=== PATIENT | male | born 2000 | race African-American/Black ===

== ENCOUNTER 2020-10-05 09:36 | Emergency (ER) | payer MEDICAID ==
[~2020-10-05] VITALS: Ht 188 cm; Wt 77.1 kg
[2020-10-05 09:46] VITALS: BP_SYST 124
[2020-10-05 09:55] VITALS: BP_SYST 124
[2020-10-05] MEDS ORDERED: ONDA-8 TL (10:10)
[2020-10-05] MEDS ORDERED: TRAM50TA PO (10:10)
== END 2020-10-05 10:24 | disposition home or self-care (01) ==
LOC: SED 09:36
DX: S09.90XA Unspecified injury of head, initial encounter (principal); Z88.8 Allergy status to other drugs, medicaments and biological substances; Z79.899 Other long term (current) drug therapy; W22.01XA Walked into wall, initial encounter; Y93.89 Activity, other specified; Y92.89 Other specified places as the place of occurrence of the external cause; Y99.8 Other external cause status
CPT/HCPCS: 99283

== ENCOUNTER 2020-11-25 16:26 | Emergency (ER) | payer MEDICAID ==
[~2020-11-25] VITALS: Ht 190.5 cm; Wt 74.8 kg
[~2020-11-25 16:26] MED LIST: ONDA-8 TL; TRAM50TA PO
[2020-11-25 16:27] VITALS: BP_SYST 133
[2020-11-25] MEDS ORDERED: ACET-2634 PO (19:19)
[2020-11-25] MEDS ORDERED: IBUP-1969 PO (19:19)
[2020-11-25 19:38] VITALS: BP_SYST 132
== END 2020-11-25 19:38 | disposition home or self-care (01) ==
LOC: SED 16:26
DX: S92.252A Displaced fracture of navicular [scaphoid] of left foot, initial encounter for closed fracture (principal); Z91.010 Allergy to peanuts; Z91.013 Allergy to seafood; Z88.8 Allergy status to other drugs, medicaments and biological substances; Z79.899 Other long term (current) drug therapy; Y04.0XXA Assault by unarmed brawl or fight, initial encounter; Y93.89 Activity, other specified; Y92.89 Other specified places as the place of occurrence of the external cause; Y99.8 Other external cause status
CPT/HCPCS: 99284

== ENCOUNTER 2021-10-07 10:07 | Emergency (ER) | payer OTHER, MEDICAID ==
[2021-10-07 10:07] VITALS: BP_SYST 144
[~2021-10-07 10:07] MED LIST changes: +ACET-2634 PO; +IBUP-1969 PO
--- NOTE | 2021-10-07 10:10 | NUR ---
Patient to ER bed 2 for evaluation. Side rails up. Report given to Emely LEVY.
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
--- NOTE | 2021-10-07 10:18 | NUR ---
Dr. Cota at bedside examining pt.
[2021-10-07] MEDS ORDERED: methocarbamoL 500 MG TABLET PO ONE (10:30)
[2021-10-07] MEDS ORDERED: KETOROLAC TROMETHAMINE 30 MG VIAL IM ONE (10:30)
--- NOTE | 2021-10-07 10:36 | NUR ---
Patient transported to radiology via wheelchair, accompanied by radiology director.
--- NOTE | 2021-10-07 10:50 | NUR ---
Returned from radiology, back to [facility].
[2021-10-07] MEDS ORDERED: METH-634 PO (11:16)
[2021-10-07 12:00] VITALS: BP_SYST 135
--- NOTE | 2021-10-07 12:01 | NUR ---
Patient given written and verbal discharge instructions and verbalizes understanding. ER MD discussed with patient the results and treatment provided. Patient in stable condition. ID arm band removed. Rx of Robaxin given. Patient educated on pain management and to follow up with PMD. Pain Scale . Opportunity for questions provided and answered. Medication side effect fact sheet provided.
== END 2021-10-07 12:00 | disposition home or self-care (01) ==
LOC: SED 10:07
DX: S29.011A Strain of muscle and tendon of front wall of thorax, initial encounter (principal); S20.212A Contusion of left front wall of thorax, initial encounter; S30.1XXA Contusion of abdominal wall, initial encounter; Z91.010 Allergy to peanuts; Z91.013 Allergy to seafood; Z79.899 Other long term (current) drug therapy; V47.5XXA Car driver injured in collision with fixed or stationary object in traffic accident, initial encounter; Y93.89 Activity, other specified; Y92.89 Other specified places as the place of occurrence of the external cause; Y99.8 Other external cause status
CPT/HCPCS: 71250; 74176; 76376; 96372; 99284; J1885

== ENCOUNTER 2021-10-15 22:58 | Emergency (ER) | payer MEDICAID, OTHER ==
[~2021-10-15] VITALS: Ht 188 cm; Wt 81.6 kg
[~2021-10-15 22:58] MED LIST changes: +METH-634 PO
--- NOTE | 2021-10-15 23:00 | NUR ---
patient triaged from ambulance and placed in bed 3
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
[2021-10-15] MEDS ORDERED: MORPHINE 4 MG INJ. 4 MG/ML VIAL IM ONE (23:45)
[2021-10-15] MEDS ORDERED: KETOROLAC TROMETHAMINE 60 MG/2 ML VIAL IM ONE (23:45)
--- NOTE | 2021-10-15 23:45 | NUR ---
ER at bedside examining patient.
[2021-10-16 00:24] VITALS: BP_SYST 112
[2021-10-16 00:31] LABS: EOSINOPHILS # (AUTO) 0.1 K/uL (0.0-0.4); HEMATOCRIT 42.8 % (36-54); HEMOGLOBIN 14.4 g/dL (14.0-18.0); PLATELET COUNT (AUTO) 220 K/uL (130-430)
[2021-10-16 00:34] LABS: CALCIUM 7.7 mg/dL (8.4-11.0); CREATININE 1.13 mg/dL (0.55-1.30); POTASSIUM 3.7 mmol/L (3.5-5.1)
[2021-10-16 00:39] LABS: EOSINOPHILS % (AUTO) 1.5 % (0.0-4.0); LYMPHOCYTES # (AUTO) 1.7 K/uL (1.0-5.5); LYMPHOCYTES % (AUTO) 37.9 % (20.5-51.5); MEAN CORPUSCULAR HEMOGLOBIN 25 pg (27-31); MEAN CORPUSCULAR HGB CONC 34 % (32-36); MEAN CORPUSCULAR VOLUME 76 fL (79.0-98.0); MONOCYTES # (AUTO) 0.4 K/uL (0.0-1.0); MONOCYTES % (AUTO) 9.1 % (1.7-9.3); NEUTROPHILS # (AUTO) 2.3 K/uL (1.8-7.7); NEUTROPHILS % (AUTO) 50.5 % (40.0-70.0); RED BLOOD CELL COUNT(AUTO) 5.67 MIL/uL (4.2-6.2); RED CELL DISTRIBUTION WIDTH 15.4 % (9.0-15.0); WHITE BLOOD COUNT (AUTO) 4.6 K/uL (4.8-10.8)
[2021-10-16 00:40] LABS: ALBUMIN 3.6 g/dL (3.4-4.8); TOTAL BILIRUBIN 0.6 mg/dL (0.0-1.0)
--- NOTE | 2021-10-16 01:22 | NUR ---
LAB CALLED CRITICAL RESULTS D [id number] DR WAGONER AWARE
[2021-10-16] MEDS ORDERED: ACET1TAB93 PO ×2 (02:22→22:32)
--- NOTE | 2021-10-16 02:39 | NUR ---
Patient given written and verbal discharge instructions and verbalizes understanding. NIDHI WAGONER MD discussed with patient the results and treatment provided. Patient in stable condition. ID arm band removed. Patient educated on pain management and to follow up with PMD. Pain Scale . Opportunity for questions provided and answered. Medication side effect fact sheet provided.
[2021-10-16 02:44] VITALS: BP_SYST 123
== END 2021-10-16 02:49 | disposition home or self-care (01) ==
LOC: SED 22:58
DX: S29.011A Strain of muscle and tendon of front wall of thorax, initial encounter (principal); Z91.010 Allergy to peanuts; Z88.8 Allergy status to other drugs, medicaments and biological substances; Z91.013 Allergy to seafood; V47.5XXA Car driver injured in collision with fixed or stationary object in traffic accident, initial encounter; Y93.89 Activity, other specified; Y92.89 Other specified places as the place of occurrence of the external cause; Y99.8 Other external cause status
CPT/HCPCS: 36415; 71045; 80053; 82550; 85025; 85379; 96372; 99284; J1885; J2270

== ENCOUNTER 2022-06-08 17:54 | Emergency (ER) | payer MEDICAID, OTHER ==
[~2022-06-08] VITALS: Ht 188 cm; Wt 73.0 kg
[~2022-06-08 17:54] MED LIST changes: +ACET1TAB93 PO
[2022-06-08 17:55] VITALS: BP_SYST 125
--- NOTE | 2022-06-08 18:01 | NUR ---
Patient triaged and placed in waiting room. VSS and patient appears in no acute distress at this time. Accompanied by FAMILY, awaiting available bed, and MD notified of need for MSE.
--- NOTE | 2022-06-08 18:20 | NUR ---
PATIENT IN ROOM 1 ON DIRECTOR OF ARCHIVES, PATIENT IS HAVING CHILLS, EDP AT BEDSIDE FOR INITIAL ASSESSMENT.
--- NOTE | 2022-06-08 18:20 | NUR ---
FAMILY IN WAITING ROOM CALLED TO NURSE, PT HAVING SYNCOPAL EPISODE. CHARGE NURSE NOTIFIED AND JOSH BROUGHT OUT TO TRIAGE ROOM, PT PLACED ON RPUEBLO, BROUGHT INTO BED #1. ALL STAFF TO BEDSIDE, DR RODGERS TO BEDSIDE.
[2022-06-08] MEDS ORDERED: NACL 0.9% 1,000 ML IV ONE (18:30)
[2022-06-08] MEDS ORDERED: MORPHINE 4 MG INJ. 4 MG/ML VIAL IVP ONE (19:00)
[2022-06-08] MEDS ORDERED: ONDANSETRON HCL 4 MG/2 ML VIAL IVP ONE (19:00)
[2022-06-08 19:09] LABS: BASOPHILS % (AUTO) 0.5 % (0.0-2.0); EOSINOPHILS % (AUTO) 0.2 % (0.0-4.0); HEMATOCRIT 40.9 % (36-54); HEMOGLOBIN 13.6 g/dL (14.0-18.0); LYMPHOCYTES # (AUTO) 1.7 K/uL (1.0-5.5); LYMPHOCYTES % (AUTO) 21.8 % (20.5-51.5); MEAN CORPUSCULAR HEMOGLOBIN 26 pg (27-31); MEAN CORPUSCULAR HGB CONC 33 % (32-36); MEAN CORPUSCULAR VOLUME 77 fL (79.0-98.0); MONOCYTES # (AUTO) 0.8 K/uL (0.0-1.0); MONOCYTES % (AUTO) 9.7 % (1.7-9.3); NEUTROPHILS # (AUTO) 5.4 K/uL (1.8-7.7); NEUTROPHILS % (AUTO) 67.8 % (40.0-70.0); PLATELET COUNT (AUTO) 151 K/uL (130-430)
[2022-06-08 19:18] LABS: CALCIUM 9.2 mg/dL (8.4-11.0); CREATININE 1.15 mg/dL (0.55-1.30)
[2022-06-08 19:24] LABS: ALBUMIN 3.6 g/dL (3.4-4.8); TOTAL BILIRUBIN 0.4 mg/dL (0.0-1.0)
[2022-06-08] MEDS ORDERED: LORazepam 2 MG/ML VIAL IVP ONE (19:45)
--- NOTE | 2022-06-08 20:05 | NUR ---
PATIENT AMBULATED TO RESTROOM. PATIENT STATED HE STOOL IS LOOKING A LITTEL BIT "MORE NORMAL." MOTHER AT BEDSIDE.
--- NOTE | 2022-06-08 21:00 | NUR ---
Patient resting quietly. No acute distress noted. Vital signs within normal range.
[2022-06-08] MEDS ORDERED: DICY10CA13 PO ×2 (21:50→22:38)
[2022-06-08 22:50] VITALS: BP_SYST 117
--- NOTE | 2022-06-08 22:50 | NUR ---
Patient given written and verbal discharge instructions and verbalizes understanding. ER MD discussed with patient the results and treatment provided. Patient in stable condition. ID arm band removed. IV catheter removed intact and dressing applied, no active bleeding. Rx of DICYCLOMINE given. Patient educated on pain management and to follow up with PMD. Pain Scale 0/10. Opportunity for questions provided and answered. Medication side effect fact sheet provided.
== END 2022-06-08 22:50 | disposition home or self-care (01) ==
LOC: SED 17:54
DX: K59.00 Constipation, unspecified (principal); R10.84 Generalized abdominal pain; F41.9 Anxiety disorder, unspecified; R53.1 Weakness; R50.9 Fever, unspecified; F12.90 Cannabis use, unspecified, uncomplicated; Z91.010 Allergy to peanuts; Z88.8 Allergy status to other drugs, medicaments and biological substances; Z79.899 Other long term (current) drug therapy
CPT/HCPCS: 99285; 74176; 96374; 96375; 96361; 80053; 83690; 85025; 84484; 36415; 93005; 76376; J2060; J2405; J2270; J7030